=== PATIENT | female | born 1980 | race Caucasian/White ===

== ENCOUNTER 2018-12-14 04:09 | Inpatient (IN) | payer OTHER ==
[~2018-12-14] VITALS: Ht 157.5 cm; Wt 95.9 kg
[2018-12-14] VITALS (8 sets, daily range): BP systolic 102–143; BP diastolic 54–91; PULSE 71–80; RESP 17–18; Ht 157.5 cm; Wt 95.9 kg
[2018-12-14] MEDS ORDERED: PHENYLephrine 10 MG INJ ONE (07:00)
[2018-12-14] MEDS ORDERED: METHYLERGONOVINE 0.2 MG INJ IM PRN ×2 (07:00)
[2018-12-14] MEDS ORDERED: EPHEDrine 50 MG INJ ONE (07:00)
[2018-12-14] MEDS ORDERED: OXYTOCIN 30 UNITS/LR 500 ML BAG IV ONE (07:00)
[2018-12-14] MEDS ORDERED: MISOPROSTOL 200 MCG TAB PR PRN ×3 (07:00→10:00)
[2018-12-14] MEDS ORDERED: OXYTOCIN 30 UNITS/LR 500 ML IV PRN ×3 (07:00→10:00)
[2018-12-14] MEDS ORDERED: CEFAZOLIN 2 GM/50 ML (PMX) 50 ML IVPB SCH (07:00)
[2018-12-14] MEDS ORDERED: CARBOPROST 250 MCG INJ IM PRN ×3 (07:00→10:00)
--- NOTE | 2018-12-14 07:15 | PREAC ---
Date/Time of Note Date/Time of Note DATE: 12/14/18 TIME: 07:14 Anesthesia Eval and Record Evaluation Time Pre-Procedure Interview DATE: 12/14/18 TIME: 07:14 Age 38 Sex female NPO: 8 hrs Preoperative diagnosis Planned procedure repeat c/s with btl Past Medical History Past Medical History: Includes Endo: Diabetes GI: Obesity Surgery & Anesthesia Issues No known issue Meds Anticoagulation: No Beta Milagros within 24 hr: No Reason Beta Imlagros not given: Pt. not on B-Milagros Current Medications Lactated Ringer's 1,000 ml @ 125 mls/hr Q8H IV ; Start 12/14/18 at 06:36 Cefazolin Sodium/ Dextrose 50 ml @ 100 mls/hr ONCE IVPB ; Start 12/14/18 at 07:00 Oxytocin/Lactated Ringer's 500 ml @ 0 mls/hr ONCE PRN IV .VAGINAL BLEEDING; Start 12/14/18 at 07:00 Methylergonovine Maleate (Methergine) 0.2 mg ONCE PRN IM .VAGINAL BLEEDING; Start 12/14/18 at 07:00 Carboprost Tromethamine (Hemabate) 250 mcg ONCE PRN IM .VAGINAL BLEEDING; Start 12/14/18 at 07:00 Misoprostol (Cytotec) 1,000 mcg ONCE PRN IL .VAGINAL BLEEDING; Start 12/14/18 at 07:00 Oxytocin/Lactated Ringer's 500 ml @ 0 mls/hr ONCE PRN IV .VAGINAL BLEEDING; Start 12/14/18 at 07:00 Methylergonovine Maleate (Methergine) 0.2 mg ONCE PRN IM .VAGINAL BLEEDING; Start 12/14/18 at 07:00 Carboprost Tromethamine (Hemabate) 250 mcg ONCE PRN IM .VAGINAL BLEEDING; Start 12/14/18 at 07:00 Misoprostol (Cytotec) 1,000 mcg ONCE PRN IL .VAGINAL BLEEDING; Start 12/14/18 at 07:00 Meds reviewed: Yes Allergies Coded Allergies: No Known Allergy (Unverified , 12/14/18) Allergies Reviewed: Yes Labs/Studies Labs Reviewed: Reviewed by anesthesiologist Result Diagram: 12/14/18 0610 Laboratory Tests 12/14/18 06:10 test: Positive Pre-procedure Exam Last vitals Vital Signs Date Temp Pulse Resp B/P (MAP) Pulse Ox O2 O2 Flow FiO2 Time Delivery Rate 12/14/18 98.2 79 18 143/91 Room Air 06:42 (108) Airway: Adequate mouth opening, Adequate thyromental dist Mallampati: Mallampati II Teeth: Normal Lung: Normal Heart: Normal ASA Physical Status ASA physical status: 2 Emergency: None Planned Anesthetic Neuraxial: Spinal Planned Pain Management Sub-arachniod narcotics Pre-operative Attestations Prior to commencing anesthesia and surgery, the patient was re-evaluated, there was verification of: *The patient's identity *The results of appropriate recent lab work and preoperative vital signs *The above evaluation not changing prior to induction *Anesthetic plan, risk benefits, alternative and complications discussed with patient/family; questions answered; patient/family understands, accepts and wishes to proceed. LC MARSHALL Dec 14, 2018 07:15
[2018-12-14] MEDS ORDERED: AMPICILLIN 2 GM/NS (PMX) 100 ML ONE (07:20)
[2018-12-14] MEDS: LACTATED RINGER'S 1,000 ML IV SCH ×3 (07:27→20:35)
[2018-12-14] MEDS ORDERED: ALBUTEROL 0.083% (NEB) 2.5 MG/3 ML AMP HHN PRN (07:30)
[2018-12-14] MEDS ORDERED: HYDROmorphONE 1 MG/5 ML IV SYRINGE IV PRN ×3 (07:30)
[2018-12-14] MEDS ORDERED: NALOXONE (0.4 MG/ML) INJ IV PRN (07:30)
[2018-12-14] MEDS ORDERED: DIPHENHYDRAMINE 50 MG INJ IV PRN ×2 (07:30)
[2018-12-14] MEDS ORDERED: METOCLOPRAMIDE 10 MG INJ IV PRN (07:30)
[2018-12-14] MEDS ORDERED: AMPICILLIN 2 GM/NS (PMX) 100 ML IVPB ONE (07:30)
[2018-12-14] MEDS ORDERED: HYDROmorphONE 0.5 MG/0.5 ML SYG IV PRN ×2 (07:30)
[2018-12-14] MEDS ORDERED: KETOROLAC 30 MG INJ IV PRN (07:30)
[2018-12-14] MEDS ORDERED: ONDANSETRON 4 MG INJ IV PRN ×2 (07:30)
[2018-12-14] MEDS ORDERED: FENTAnyl 50 MCG/ML VIAL IV PRN ×3 (07:30)
--- NOTE | 2018-12-14 08:09 | PREOPHP ---
DATE OF ADMISSION: 12/14/2018 HISTORY OF PRESENT ILLNESS: The patient is a 38-year-old 3, para 2, EDC 12/21/2018 intrauter ine at 39 weeks gestational age with a history of previous x2, admitted today for elective repeat delivery with bilateral tubal sterilization. Her blood pressures are curre ntly in the 140s/90s. She denies any headaches, nausea, vomiting, shortness of breath, or visual nasim nges. [facility] care took place at [facility]. PAST MEDICAL HISTORY: None. MEDICATIONS: vitamins. PAST SURGICAL HISTORY: x2 previous section. OBSTETRIC HISTORY: x2 previous section. GYNECOLOGIC HISTORY: 12, regular 3 to 4 days. She denies any sexually transmitted disease. Sexuall y active with 1 partner. SOCIAL HISTORY: She denies any smoking, drugs or alcohol. FAMILY HISTORY: None. REVIEW OF SYSTEMS: All within normal except history of present illness. PHYSICAL EXAMINATION: HEENT: Within normal. LUNGS: CTA bilateral. CARDIOVASCULAR: S1, S2, regular rhythm. ABDOMEN: Gravid, nontender. Negative CVA bilateral. EXTREMITIES: Negative edema. No calf tenderness. PELVIC: Vaginal exam deferred. heart tracing category 1. Tocometer; irregular contractions. ASSESSMENT: A 38-year-old 3, para 2, intrauterine at 39 weeks gestational age, ad vanced maternal age, previous x2, gestational hypertension. She desires elective repeat ce sarean delivery with bilateral tubal sterilization, declines vaginal after . PLAN: Consent for repeat with bilateral tubal ligation. PIH labs to rule out preeclampsia . Preeclamptic precautions. Dictated By: FAUSTO HOLMAN/GAVIN Conf#: [id number] DID#: [id number] CC: FAUSTO LANDON MD;*EndCC*
[2018-12-14] MEDS ORDERED: morphine SULFATE/PF (10 MG/10 ML) INJ ONE (09:01)
[2018-12-14] MEDS ORDERED: NACL 0.9% 3 ML SYG IV SCH ×2 (10:00→10:30)
[2018-12-14] MEDS ORDERED: OXYCODONE/ACETAMINOPHEN (5/325) TAB PO PRN ×2 (10:00)
[2018-12-14] MEDS ORDERED: OXYTOCIN 30 UNITS/LR 500 ML IV SCH ×2 (10:00→11:00)
--- NOTE | 2018-12-14 10:00 | OPPN ---
Date/Time of Note Date/Time of Note DATE: 12/14/18 TIME: 09:59 Operative Report Planned Procedure Procedure date Dec 14, 2018 Procedure(s) repeat low transverse CD with bilateral tubal ligation dulce method Performed by see signature line Fine Grade Bulldozer Operator: REID MOON MD 2nd Fine Grade Bulldozer Operator none Pre-procedure diagnosis 38-year-old 3, para 2, intrauterine at 39 weeks gestational age, advanced maternal age,GDMA 1, previous x2, gestational hypertension. She desires elective repeat delivery with bilateral tubal sterilization, declines vaginal after . [id number] Anesthesia Type: [id number] spinal Post-Procedure Post-procedure diagnosis same Findings Live Baby [], Apgars [] and [], weight [], position [], [] presentation []cord. Estimated Blood Loss: 500 - 600 mls (500) Specimen(s) portion of right and left fallopian tube Grafts/Implant(s) none Complication(s) none FAUSTO LANDON MD Dec 14, 2018 10:00
[2018-12-14] MEDS ORDERED: MAGNESIUM SULFATE 4 GM/100 ML 100 ML IVPB ONE (10:30)
[2018-12-14] MEDS ORDERED: CA GLUCONATE (GM) 10% 10ML INJ IV PRN (10:30)
[2018-12-14] MEDS ORDERED: MAGNESIUM SULFATE 4 GM/100 ML 100 ML ONE (10:34)
[2018-12-14] MEDS ORDERED: LABETALOL HCL 20MG INJ ONE (10:34)
--- NOTE | 2018-12-14 10:56 | PAC ---
Date/Time of Note Date/Time of Note DATE: 12/14/18 TIME: 10:56 Post-Anesthesia Notes Post-Anesthesia Note Last documented vital signs Vital Signs Date Temp Pulse Resp B/P (MAP) Pulse Ox O2 O2 Flow FiO2 Time Delivery Rate 12/14/18 98.2 79 18 143/91 Room Air 06:42 (108) Activity: WNL Respiratory function: WNL Cardiovascular function: WNL Mental status: Baseline Pain reasonably controlled: Yes Hydration appropriate: Yes Nausea/Vomiting absent: Yes LC MARSHALL Dec 14, 2018 10:56
[2018-12-14] MEDS ORDERED: LABETALOL HCL 20MG INJ IV ONE (11:00)
[2018-12-14] MEDS: CEFAZOLIN 2 GM/50 ML (PMX) 50 ML IVPB SCH ×2 (11:07→18:04)
[2018-12-14] MEDS: MAGNESIUM SULFATE 20 GM/500 ML 500 ML IV SCH ×2 (11:31→20:36)
[2018-12-14] MEDS: KETOROLAC 30 MG INJ IV PRN ×2 (11:32→21:11)
[2018-12-14] MEDS: ACCU-CHEK XX SCH ×2 (13:30→20:05)
[2018-12-14] MEDS: GUAIFENESIN/DM 5ML CUP PO PRN ×2 (14:05→20:38)
[2018-12-14] MEDS: SENNA/DOCUSATE NA (8.6MG/50MG) TAB PO SCH (21:00)
[2018-12-15] VITALS (11 sets, daily range): BP systolic 93–124; BP diastolic 51–62; PULSE 69–79; RESP 18–19
[2018-12-15] MEDS: CEFAZOLIN 2 GM/50 ML (PMX) 50 ML IVPB SCH (02:17)
[2018-12-15] MEDS: KETOROLAC 30 MG INJ IV PRN (04:46)
[2018-12-15] MEDS: MAGNESIUM SULFATE 20 GM/500 ML 500 ML IV SCH (07:05)
[2018-12-15] MEDS: ACCU-CHEK XX SCH ×3 (07:30→13:50)
--- NOTE | 2018-12-15 09:26 | OPR ---
DATE OF OPERATION: 12/14/2018 PREOPERATIVE DIAGNOSIS: Intrauterine at 39 weeks gestational age. Previous x2, advanced maternal age, GDM A1, gestational hypertension. Desires elective repeat delivery w ith tubal sterilization, declines vaginal after section. POSTOPERATIVE DIAGNOSES: Intrauterine at 39 weeks gestational age. Previous x2, advanced maternal age, GDM A1, gestational hypertension. Desires elective repeat delivery w ith tubal sterilization, declines vaginal after section. OPERATION PERFORMED: Repeat low transverse delivery with a right tubal ligation, [place] me thod, left tubal salpingectomy. SURGEON: Pantera Solomon MD STANDARD MACHINE STITCHER: Melania Suarez MD. ANESTHESIA: Spinal. COMPLICATIONS: None. ESTIMATED BLOOD LOSS: 500 mL. FINDINGS: A viable male, 8 and 9 respectively at 1 and 5 minutes, weight 4360 grams. Normal r ight fallopian tube, positive left paratubal cyst, normal ovaries. DESCRIPTION OF PROCEDURE: After explaining the risks, benefits and alternatives, the patient had con sent signed in chart, the patient was taken to the operating room where spinal anesthesia was found t o be adequate. She was then prepared and draped in normal sterile fashion in dorsal supine position with a leftward tilt. A Pfannenstiel skin incision was then made with a scalpel and carried to the u nderlying fascia. The fascia was incised in the midline and incision was extended laterally with January o scissors. The superior aspect of fascial incision was grasped with curved clamps, elevated and the underlying rectus muscles dissected off bluntly. Attention was then turned to the inferior aspect i ncision which in similar fashion was grasped, tented up with curved clamps and the rectus muscles dis sected off bluntly. The rectus muscles were in midline, peritoneum identified, tented up, and sharply with Metzenbaum scissors. The peritoneal incision was extended superiorly and inferiorly with good visualization of the bladder. The bladder blade was then inserted and the vesicouterine p eritoneum identified, grasped with pickups and entered sharply with Metzenbaum scissors. This incisi on was extended laterally and a bladder flap created digitally. The bladder blade was then reinserte d and the lower segment incised in transverse fashion with a scalpel. The uterine incision was exten ded laterally. The bladder blade was removed. The infant's head delivered atraumatically. The nose and mouth were suctioned and cord clamped and cut. was handed off to awaiting tax collector. The placenta was then removed. The uterus was exteriorized and cleared of all clots and debris. Th e uterine incision was repaired with 1-0 chromic in a running locked fashion. A second layer of same suture was used for imbrication obtaining excellent hemostasis. At this point, using a [place], the right fallopian tube was grasped approximately 4 cm from the corn ual region. A 3 cm segment of tube was ligated with a free tie of plain gut and excised. Good hemos tasis was noted. Similarly, the left fallopian tube, a salpingectomy was performed with a free tie a nd cut and sent to pathology. Both areas were observed to have good hemostasis. At this point, the uterus was returned to the abdomen. The gutters were cleared of all clots. The peritoneum and rectu s abdominis muscles reapproximated with 2-0 Vicryl in an interrupted fashion. The fascia was reappro ximated with 0 Vicryl in a running fashion. The skin was closed with rupa. The patient tolerated the procedure well. All counts were correct. The patient was taken to recovery room in stable cond ition. Dictated By: PANTERA HOLMAN/GAVIN Conf#: [id number] DID#: [id number]
[2018-12-15] MEDS: SENNA/DOCUSATE NA (8.6MG/50MG) TAB PO SCH ×2 (09:43→20:30)
[2018-12-15] MEDS: OXYCODONE/ACETAMINOPHEN (5/325) TAB PO PRN (09:43)
[2018-12-15] MEDS: IBUPROFEN 600 MG TAB PO SCH ×3 (12:52→23:32)
[2018-12-15] MEDS: GUAIFENESIN/DM 5ML CUP PO PRN ×2 (14:47→21:09)
--- NOTE | 2018-12-15 17:41 | QN ---
Documentation Comment passing gas noB.M Vss afebrile abdomen soft wound dry lochia mod calf neg for tenderness A stable PO c/s 1 p as ordered HUE JUSTIN MD Dec 15, 2018 17:41
[2018-12-16] MEDS: OXYCODONE/ACETAMINOPHEN (5/325) TAB PO PRN ×5 (03:44→22:28)
[2018-12-16 03:45] VITALS: BP 136/66; PULSE 82; RESP 18
[2018-12-16] MEDS: IBUPROFEN 600 MG TAB PO SCH ×4 (06:27→23:51)
[2018-12-16 08:00] VITALS: BP 109/71; PULSE 79; RESP 18
[2018-12-16] MEDS: SENNA/DOCUSATE NA (8.6MG/50MG) TAB PO SCH ×2 (09:26→21:19)
[2018-12-16] MEDS: ACCU-CHEK XX SCH ×3 (10:05→20:05)
[2018-12-16] MEDS: GUAIFENESIN/DM 5ML CUP PO PRN (10:45)
--- NOTE | 2018-12-16 12:16 | QN ---
Documentation Comment POD #2 s/p repeat . Pt feels well with good pain control. Does bleed a bit more when pumps or breastfeeds but otherwise all fine. Baby latching on well. T=98.6 BP 109/71 Fundus firm. Incision clean, dry, intact although under a very large pannus. [place] are present. Lochia minimal. Ext 1-2+ edema. 4/5 WBC 11.9 Hgb 10.3 A: Probable d/c tomorrow LEYLA ALMARAZ MD Dec 16, 2018 12:16
[2018-12-16 16:00] VITALS: BP 130/70; PULSE 90; RESP 16
[2018-12-16 20:10] VITALS: BP 111/66; PULSE 85; RESP 18
[2018-12-17 03:50] VITALS: BP 105/57; PULSE 75; RESP 17
[2018-12-17] MEDS: IBUPROFEN 600 MG TAB PO SCH ×2 (05:38→13:05)
[2018-12-17 07:30] VITALS: BP 150/80; PULSE 73; RESP 18
[2018-12-17] MEDS: SENNA/DOCUSATE NA (8.6MG/50MG) TAB PO SCH (08:25)
[2018-12-17] MEDS: OXYCODONE/ACETAMINOPHEN (5/325) TAB PO PRN ×2 (08:26→15:33)
--- NOTE | 2018-12-17 08:27 | QN ---
Documentation Comment POD#3 is stable afebrile tolerates diet No VB +Voids +BM VS stable Gen NAD Abd soft NT ND [place] to be removed Genitalia No blood at perineum --->Discharge home -->precautions discussed --->Questions answered MAMIE RUELAS M.D. Dec 17, 2018 08:27
--- NOTE | 2018-12-17 08:28 | DS ---
Date/Time of Note Date/Time of Note DATE: 12/17/18 TIME: 08:27 Discharge Summary Admission/Discharge Info Admit Date/Time Dec 14, 2018 at 04:09 Discharge Date/Time 12/17/2018 Discharge Diagnosis Patient Condition: Good Hospital Course uneventful Primary Care Provider [facility] Pending Labs Laboratory Tests Test 12/16/18 10:24 12/16/18 16:22 12/16/18 21:20 Bedside Glucose 125 mg/dL (70-220) 94 mg/dL (70-220) 124 mg/dL (70-220) MAMIE RUELAS M.D. Dec 17, 2018 08:28
[2018-12-17 09:30] VITALS: BP 122/59; PULSE 68; RESP 18
[2018-12-17 15:15] VITALS: BP 132/60; PULSE 74; RESP 18
--- NOTE | 2018-12-18 19:17 | DELSUM ---
Delivery Summary A-C Datetime Report Generated by CPN: 12/18/2018 19:17 DELIVERY PERSONNEL [place]: Ligia Johnson MATERNAL INFORMATION Delivery Anesthesia: Spinal Medications in Delivery: see anesthesia records Delivery QBL (ml): 500 Placenta Cultured: No Maternal Complications: Other Other Maternal Complications: Gestational diabetes diet controlled. High blood pressure upon admissi on LABOR SUMMARY EDC: 12/18/2018 00:00 No. Babies in Womb: 1 Attempted: No Labor Anesthesia: None LABOR INFORMATION Reason for Induction: Not Applicable Oxytocin: N/A Group B Beta Strep: Positive Antibiotics # of Doses: 2 Antibiotics Time of Last Dose: 12/14/2018 09:20 Steroids Given: None Reason Steroids Not Administered: Not Applicable MEMBRANES Membranes Rupture Method: Artificial Rupture of Membranes: 12/14/2018 09:26 Length of Rupture (hr): 0.02 Amniotic Fluid Color: Clear Amniotic Fluid Amount: Moderate Amniotic Fluid Odor: None STAGES OF LABOR Stage 3 hr: 0 Stage 3 min: 3 CSECTION DELIVERY Primary Indication: Repeat Elective Secondary Indication: N/A CSection Urgency: Elective CSection Incidence: Repeat Labor: No Labor Elective: N/A CSection Incision: Lower Uterine Transverse Sterilization Procedure: [place] BABY A INFORMATION Infant Delivery Date/Time: 12/14/2018 09:27 Method of Delivery: Vaginal Born in Route : No : N/A Forceps: N/A Vacuum Extraction: N/A Shoulder Dystocia : No SHOULDER DYSTOCIA BABY A Infant Delivery Date/Time: 12/14/2018 09:27 PRESENTATION/POSITION BABY A Presentation: Cephalic Cephalic Presentation: Vertex Breech Presentation: N/A PLACENTA INFORMATION BABY A Placenta Delivery Time : 12/14/2018 09:30 Placenta Method of Delivery: Manual Removal Placenta Status: Delivered SCORES BABY A Heart Rate 1 min: >100 bpm Resp Effort 1 min: Good Cry Reflex Irritability 1 min: Cough/Sneeze/Pulls Away Muscle Tone 1 min: Active Motion Color 1 min: Body [place], Extremit Blue Resuscitation Effort 1 min: Tactile Stimulation SCORE 1 MIN: 9 Heart Rate 5 min: >100 bpm Resp Effort 5 min: Good Cry Reflex Irritability 5 min: Cough/Sneeze/Pulls Away Muscle Tone 5 min: Active Motion Color 5 min: Body [place], Extremit Blue Resuscitation Effort 5 min: Tactile Stimulation SCORE 5 MIN: 9 INFANT INFORMATION BABY A Gestational Age at Delivery: 39.3 Gestational Status: Full Term- 39- 40.6 Weeks Outcome : Liveborn Infant Condition : Stable Sex: Male IDENTIFICATION/MEDS BABY A ID Band Number: [id number] ID Band Location: Right Leg; Left Arm Sensor Applied: Yes Sensor Number: [id number] Sensor Location : Cord Clamp Vitamin K Given : Not Given Erythromycin Given: Not Given WEIGHT/LENGTH BABY A Birthweight (gm): 4360 Infant Weight (lb): 9 Weight (oz): 10 Infant Length (in): 21.50 Length (cm): 54.61 CORD INFORMATION BABY A No. Cord Vessels: 3 Nuchal Cord : Around Neck x1, Loose Cord Blood Taken: Yes Infant Suction: Mouth; Nose ASSESSMENT BABY A Infant Complications: None Physical Findings at Delivery: Within Normal Limits Respirations: Appears Normal Equipment Washer/ALS Called : No Care By: CATARINA Transferred To: Remains with Mother
--- NOTE | 2018-12-20 15:57 | CONS ---
Consultation Date/Type/Reason Admit Date/Time Dec 14, 2018 at 04:09 Initial Consult Date 12/14/18 Type of Consult anesthesiology Reason for Consultation follow up Date/Time of Note DATE: 12/20/18 TIME: 15:57 24 HR Interval Summary Free Text/Dictation Pt seen and examined on 12/15/18 was POD#1 s/p repeat c/s with BTL. Pt received spinal duramorph for post-op pain control. No N/V/REDD. Exam/Review of Systems Exam Vitals Vital Signs Date Temp Pulse Resp B/P (MAP) Pulse Ox O2 O2 Flow FiO2 Time Delivery Rate 12/17/18 74 18 132/60 Room Air 15:15 (84) 12/17/18 97 09:30 12/17/18 98.8 07:30 LC MARSHALL Dec 20, 2018 15:57
== END 2018-12-17 16:15 | disposition home or self-care (01) | DRG 785 ==
LOC: L-D 04:09 → PP1 16:26
PROVIDERS: ADMIT Obstetrics & Gynecology; ATTEND Obstetrics & Gynecology
PROC: 0UT70ZZ Resection of Bilateral Fallopian Tubes, Open Approach (ICD-10-PCS; 2018-12-14)
PROC: 10D00Z1 Extraction of Products of Conception, Low, Open Approach (ICD-10-PCS; principal; 2018-12-14 07:30)
DX: O65.5 Obstructed labor due to abnormality of maternal pelvic organs (principal); O34.211 Maternal care for low transverse scar from previous cesarean delivery; O24.429 Gestational diabetes mellitus in childbirth, unspecified control; Z3A.39 39 weeks gestation of pregnancy; Z37.0 Single live birth; Z30.2 Encounter for sterilization
CPT/HCPCS: 80053; 82962; 84560; 85025; 85384; 85610; 85730; 86592; 86850; 86900; 86901; 88302; 99464; J0290; J0690; J1885; J2274; J2590; J3475; J7120